=== PATIENT | male | born 1985 | race African-American/Black ===

== ENCOUNTER → 2016-09-08 | Outpatient (CLI) | payer OTHER ==
[~2016-09-08] MED LIST: BACTRIM DS TABL1 TA1 PO; IBUPROFEN PO; KEFLEX500 MG PO; LODINE PO; LORTAB 5/500 TA1 TA2 PO
--- NOTE | ~2016-09-08 | CR181 ---
[facility] RADIOLOGY TEXT RESULTS PATIENT: CHAVEZ KAM LOCATION: [facility] : 83 UNIT #: [id number] AGE: [address]: French Chen SEX: M ORDER DR: [id number] [place] [id number] [facility]. [place], [place] [address] [id number] O MR#: [id number] Acc #: [id number] NAME: CHAVEZ KAM : 1985 SEX: M STUDY DATE/TIME: 09/08/2016 9:50 UNIT: [facility] ROOM: STUDY DESCRIPTION: CR Lumbar Spine 2 or 3 Views Attending Physician: Roderick Chen Pa-C Ordering Physician: Roderick Chen Pa-C Primary Care Physician: Roderick Chen Pa-C MEDICAL IMAGING REPORT This report is preliminary unless electronic signature is present EXAM Lumbar spine series. HISTORY Intermittent low back pain over the past 8 years, worse when sitting. TECHNIQUE 3 views of the lumbar spine were obtained. FINDINGS AP and lateral projections of the lumbar segment show good mineralization of both anterior and posterior elements. They are all anatomically normal without indication of fracture, dislocation, or malignant change of a sclerotic or lytic type. There is no congenital defect noted. The sacroiliac joints are normal. IMPRESSION Normal lumbar spine. Dictated by... Rolan Hart M.D. THIS IS AN ELECTRONICALLY VERIFIED REPORT Rolan Hart M.D. at 09/11/2016 11:01 AM DEJAN/piotr TD: 09/10/2016 11:02 JOB #: [id number] [facility] RADIOLOGY TEXT RESULTS PATIENT: CHAVEZ KAM LOCATION: [facility] : 83 UNIT #: [id number] AGE: [address]: French Chen SEX: M ORDER DR: MEDICAL IMAGING REPORT Page 1 of 1 COPY
== END | disposition home or self-care (01) ==
LOC: CRAD 09:36
DX: M54.5 Low back pain (principal)
CPT/HCPCS: 72100